=== PATIENT | female | born 1975 | race Caucasian/White ===

== ENCOUNTER 2022-11-20 20:58 | Emergency (ER) | payer OTHER ==
[2022-11-20 21:05] VITALS: BP 118/71; PULSE 105; RESP 18; TEMP 97.6; BMI 16.6
[2022-11-20 21:38] LABS: BASO % 0.3 % (0-2.0); EOS % 0.7 % (0-4.5); HEMATOCRIT 43.3 % (32.4-45.2); HEMOGLOBIN 14.1 GM/dL (10.7-15.3); LYMPH % 24.4 % (8-40); MCH 31.6 pg (25.7-33.7); MCHC 32.6 g/dl (32.0-36.0); MEAN CELL VOLUME 96.8 fl (80-96); MEAN PLT VOLUME 7.9 fl (7.5-11.1); MONO % 10.7 % (3.8-10.2); NEUT % 63.9 % (42.8-82.8); PLATELET COUNT 277 10^3/uL (134-434); RBC 4.47 M/mm3 (3.60-5.2); RDW 16.3 % (11.6-15.6)
[2022-11-20 21:56] LABS: POTASSIUM 3.7 mmol/L (3.5-5.1)
[2022-11-20 21:58] LABS: CALCIUM 8.8 mg/dL (8.5-10.1)
[2022-11-20 22:00] LABS: ALBUMIN 3.7 g/dl (3.4-5.0); BLOOD UREA NITROGEN 5.3 mg/dL (7-18); MAGNESIUM 2.3 mg/dL (1.8-2.4)
[2022-11-20 22:03] LABS: CREATININE 0.6 mg/dL (0.55-1.3)
[2022-11-20 22:04] LABS: BILIRUBIN,TOTAL 0.3 mg/dL (0.2-1); TOT PROT 7.5 g/dl (6.4-8.2)
== END 2022-11-21 05:03 | disposition home or self-care (01) ==
LOC: JER 20:58
DX: F10.120 Alcohol abuse with intoxication, uncomplicated (principal)
CPT/HCPCS: 36415; 80053; 80307; 83735; 85025; 99283-25

== ENCOUNTER 2022-12-13 12:56 | Emergency (ER) | payer OTHER ==
[2022-12-13 13:14] VITALS: BP 109/69; PULSE 113; RESP 20; TEMP 98.2; BMI 16.6
== END 2022-12-13 14:08 | disposition home or self-care (01) ==
LOC: JER 12:56
DX: F10.129 Alcohol abuse with intoxication, unspecified (principal); Y90.9 Presence of alcohol in blood, level not specified
CPT/HCPCS: 99283-25